=== PATIENT | female | born 1950 | race Caucasian/White ===

== ENCOUNTER 2017-02-26 08:01 | Day surgery (SDC) | payer BC ==
[2017-02-26 08:46] LABS: BASOPHILS 0.6 % (0-2); EOSINOPHILS 0.8 % (0-7); HEMOGLOBIN 12.9 g/dL (12-16); IMMATURE GRANULOCYTES 0.2 % (0-5); LYMPHOCYTES 26.8 % (15-50); MCH 28.5 pg (26.0-34.0); MCHC 32.3 g/dL (31.0-37.0); MCV 88.5 fL (80.0-100.0); MEAN PLATELET VOLUME 10.5 fL (7.4-10.4); MONOCYTES 8.8 % (2-11); NEUTROPHILS 62.8 % (40-80); PLATELET COUNT 247 10x3/uL (130-400); RBC 4.52 10x6/uL (4.00-5.40); RDW 13.1 % (11.5-14.5); WBC 6.5 10x3/uL (4.8-10.8)
[2017-02-26 09:01] LABS: ANION GAP 13.5 mmol/L (8-16); CALCIUM 9.3 mg/dL (8.5-10.1); CARBON DIOXIDE 27.3 mmol/L (21.0-32.0); CREATININE - SERUM 0.9 mg/dL (0.6-1.3); POTASSIUM - SERUM 3.8 mmol/L (3.5-5.1)
[2017-02-26] MEDS ORDERED: PROSCAR5 MG PO (09:03)
[2017-02-26] MEDS ORDERED: PLAVIX75 MG PO (09:03)
[2017-02-26] MEDS ORDERED: BAYER CHEWABLE81 MG PO (09:04)
[2017-02-26] MEDS ORDERED: PEPCID20 MG PO (09:06)
[2017-02-26] MEDS ORDERED: PROLIA INJ 660 MG/M1 IJ (09:08)
[2017-02-26] MEDS ORDERED: MUCINEX600 MG PO (09:12)
[2017-02-26] MEDS ORDERED: NASACORT10.8 ML NASAL (09:12)
[2017-02-26 09:22] VITALS: BP 154/88; BMI 24.7
--- NOTE | 2017-02-26 14:17 | NUR ---
1340 DISCHARGE INSTRUCTIONS COMPLETE. PT HAS NO QUESTIONS OR CONCERNS AT THIS TIME. PT IS CONGESTED AND DR. HALEY NOTIFIED-SHE CAME TO BESIDE AND NO ORDERS GIVEN. PT ESCORTED OUT BY VOLUNTEER.
--- NOTE | 2017-03-18 16:01 | OP ---
PATIENT NAME: CASS HANDY MEDICAL RECORD: [id number] :50 LOCATION:D.OPS ADMISSION DATE: SURGEON: RAYA WATSON MD DATE OF OPERATION: 02/26/2017 PROCEDURE: Colonoscopy with polypectomy. MANAGER ONCOLOGY: Raya Watson MD SCOPE: Olympus videocolonoscope. MEDICATIONS: Per TIVA anesthesia. The patient was intubated for this procedure as she was felt to be of high risk for aspiration secondary to symptoms of severe gastroesophageal reflux disease. For her comfort and safety, she was intubated and received propofol for this procedure. Please see the anesthesiology log for the medications given. INDICATION FOR THE PROCEDURE: History of colon polyps. The patient's last colonoscopy was 09/25/2011 and was fairly unremarkable. She is asymptomatic at this time and will have a colonoscopy this date. FINDINGS: Informed consent was given. The patient was made comfortable with the above medications. After reaching an adequate level of sedation by slow IV push, the patient was placed on her left side. The rectal exam revealed good sphincter tone, no fissures or fistulas were appreciated. No external skin tags were seen. The colonoscope was advanced to the cecum where the ileocecal valve and appendiceal orifice were identified. On withdrawal of the scope, mucosa was carefully inspected. The patient was noted to have a 0.5 cm polyp in the hepatic flexure which was removed with hot biopsy forcep technique. Additionally, she had very minimal diverticulosis without diverticulitis in the sigmoid colon. On retroflexion and final withdrawal of the scope, internal hemorrhoids were appreciated. The scope was then withdrawn. IMPRESSION: 1. Normal colon and normal terminal ileum, cecum identified as well as the appendiceal orifice. 2. A 0.5 cm benign-appearing polyp in the hepatic flexure, removed with hot biopsy forcep technique. 3. Single diverticulum in the distal sigmoid colon without inflammation or infection. 4. Grade I internal hemorrhoids. PLAN: 1. The patient will be extubated prior to awakening. 2. High-fiber diet. 3. No anti-inflammatory drugs times 14 days. 4. Probiotics. 5. Return to clinic on a p.r.n. basis. TRANSINT:[id number] Voice Confirmation ID: [id number] DOCUMENT ID: [id number] OPERATIVE REPORT [id number] CASS HANDY RAYA WATSON MD at 1601 CC: MG OBRIEN MD [id number] DICTATION DATE: 02/26/17 1130 LAYAWAY CLERK: 02/26/17 1216 [facility] 02/26/17 [id number] [place] [address]
== END 2017-02-26 13:40 | disposition home or self-care (01) ==
LOC: D.OPS 08:01
PROVIDERS: Anesthesiology
DX: K63.5 Polyp of colon (principal); K44.9 Diaphragmatic hernia without obstruction or gangrene; K21.9 Gastro-esophageal reflux disease without esophagitis; K64.0 First degree hemorrhoids; Z01.812 Encounter for preprocedural laboratory examination

== ENCOUNTER 2018-07-03 13:24 | Emergency (ER) | payer BC, OTHER ==
[~2018-07-03] VITALS: Ht 157.5 cm; Wt 63.6 kg
[~2018-07-03 13:24] MED LIST: BAYER CHEWABLE81 MG PO; MUCINEX600 MG PO; NASACORT10.8 ML NASAL; PEPCID20 MG PO; PLAVIX75 MG PO; PROLIA INJ 660 MG/M1 IJ; PROSCAR5 MG PO
[2018-07-03 13:26] VITALS: BP 175/94; Ht 157.5 cm; Wt 63.6 kg
[2018-07-03] MEDS ORDERED: ASPIRIN325 MG PO (13:28)
[2018-07-03] MEDS ORDERED: CO Q-10100 MG PO (13:30)
[2018-07-03] MEDS ORDERED: CRESTOR5 MG PO (13:30)
[2018-07-03] MEDS ORDERED: ASCORBIC ACID500 MG PO (13:31)
[2018-07-03] MEDS ORDERED: PREVACID30 MG PO (13:31)
[2018-07-03] MEDS ORDERED: VALIUM 2 MG TAB2 MG PO (16:10)
== END 2018-07-03 16:57 | disposition home or self-care (01) ==
LOC: D.ER 13:24
DX: S16.1XXA Strain of muscle, fascia and tendon at neck level, initial encounter (principal); V43.52XA Car driver injured in collision with other type car in traffic accident, initial encounter; Y93.89 Activity, other specified; Y92.410 Unspecified street and highway as the place of occurrence of the external cause; S20.219A Contusion of unspecified front wall of thorax, initial encounter; S93.402A Sprain of unspecified ligament of left ankle, initial encounter; S63.502A Unspecified sprain of left wrist, initial encounter; M62.838 Other muscle spasm

== ENCOUNTER → 2019-01-26 08:56 | Outpatient (CLI) | payer BC, OTHER ==
[2018-07-03 13:26] VITALS: BMI 25.6
[~2019-01-26 08:56] MED LIST changes: +ASCORBIC ACID500 MG PO; +ASPIRIN325 MG PO; +CO Q-10100 MG PO; +CRESTOR5 MG PO; +PREVACID30 MG PO; +VALIUM 2 MG TAB2 MG PO
== END | disposition home or self-care (01) ==
LOC: D.CT 08:56
PROVIDERS: ATTEND Family Medicine
DX: J98.59 Other diseases of mediastinum, not elsewhere classified (principal); R16.1 Splenomegaly, not elsewhere classified; N28.1 Cyst of kidney, acquired

== ENCOUNTER → 2019-03-10 11:29 | Outpatient (CLI) | payer BC ==
[2018-07-03 13:26] VITALS: BMI 25.6
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
== END | disposition home or self-care (01) ==
LOC: D.HCCECHO 11:29
PROVIDERS: ATTEND Internal Medicine Interventional Cardiology
DX: I10 Essential (primary) hypertension (principal)